=== PATIENT | male | born 1950 | race Caucasian/White ===

== ENCOUNTER 2018-07-19 11:14 | Emergency (ER) | payer MEDICARE, BC ==
[2018-07-19] MEDS ORDERED: ISOVUE-370 76%-LOCM 1 ML ONE (11:20)
--- NOTE | 2018-07-19 12:02 | RAD ---
CHEST TWO VIEWS: HISTORY: Cough with increasing shortness of breath for the last four days. COMPARISON: 11/24/2015 FINDINGS: Two views of the chest show an enlarged cardiomediastinal silhouette with atherosclerotic calcificati ons in the aorta. There is no evidence of consolidation, mass, or pleural effusion. IMPRESSION: Cardiomegaly. POS: [facility]
[2018-07-19 12:08] LABS: #Lymphocytes 0.9 thou/uL (1.20-3.40); #Monocytes 0.6 thou/uL (0.11-0.59); #Neutrophils 3.9 thou/uL (1.40-6.50); %Basophils 0.3 % (0.0-1.0); %Eosinophils 0.9 % (0.0-10.0); %Lymphocytes 16.1 % (21.0-51.0); %Monocytes 10.6 % (0.0-10.0); %Neutrophils 72.1 % (42.0-75.0); Hemoglobin 11.2 g/dL (14.0-18.0); Mean Corpuscular HGB CONC 32.8 g/dL (32.0-36.0); Mean Corpuscular Hemoglobin 31.1 pg (27.0-31.0); Mean Corpuscular Volume 94.8 fL (78.0-98.0); Mean Platelet Volume 8.6 fL (7.4-10.4); Platelet Count 140 thou/uL (130-400); White Blood Cell (WBC) Count 5.5 thou/uL (4.8-10.8)
[2018-07-19 12:24] LABS: Anion Gap 10 mmol/L (10-20); BUN (Urea Nitrogen) 15 mg/dL (8.4-25.7); Calc. Creatinine Clearance 0 mL/min (70-130); Calcium 9.1 mg/dL (7.8-10.44); Carbon Dioxide 22 mmol/L (23-31); Chloride 108 mmol/L (98-107); Estimated GFR-MDRD 72; Glucose 188 mg/dL (80-115); Potassium 4.4 mmol/L (3.5-5.1); Sodium 136 mmol/L (136-145)
[2018-07-19 12:29] LABS: CKMB 1.4 ng/mL (0-6.6); Troponin I Less than 0.010 ng/mL (< 0.028)
[2018-07-19] MEDS ORDERED: Water For Inject, Bacteriostat 0 ML ONE (13:09)
[2018-07-19] MEDS ORDERED: methylPREDNISolone Sod Succ/PF 125 MG/2 ML VIAL ONE (13:09)
[2018-07-19] MEDS ORDERED: Water For Inject, Bacteriostat 30 ML ONE (13:11)
[2018-07-19 13:21] LABS: Bilirubin Negative (Negative); Blood, Urine Negative (Negative); Clarity CLEAR (Clear); Glucose, Urine (Dipstick) Negative (Negative); Leukocyte Negative (Negative); Nitrite Negative (Negative); Protein, Urine (Dipstick) Negative (Neg-Trace); Specific Gravity, Urine 1.014 (1.002-1.036); Urobilinogen 0.2 mg/dL (0.2-1.0); pH, Urine 5.5 (5.0-9.0)
--- NOTE | 2018-07-19 13:26 | CT ---
CT ANGIOGRAM CHEST WITH 3D RENDERING: HISTORY: A 67-year-old male with a history of shortness of breath, cough, and fever last night. FINDINGS: There are bilateral heterogeneous pleural plaques and pleural thickening with some associated pleural calcification. This is a finding that can be seen in patients with asbestosis. There may be some a ctual right pleural effusion, in addition to the pleural thickening. No convincing CT evidence for a cute pulmonary embolism. Three-vessel coronary artery calcific disease. No evidence of aortic aneur ysm or dissection. The visualized upper abdomen appears unremarkable. There is at least one 0.6 cm in diameter subpleural nodule in the left lower lobe, as well as some pleural-based nodularity bilate rally. There are somewhat diffuse ground glass opacity changes bilaterally, particularly in the lowe r lobes, nonspecific. IMPRESSION: 1. No convincing CT evidence for acute pulmonary embolism. 2. Prominent bilateral pleural plaques and nodular pleural thickening with some calcification change s, a finding that can be seen in association with asbestosis, as well as probable small, free right p leural effusion. 3. Probable small liver cysts. 4. Three vessel coronary artery calcific disease. 5. A small, 0.6 cm in diameter subpleural nodule in the left lower lobe. Given other abnormal findings in the chest, short-term followup for pulmonary nodule surveillance is suggested at [address] POS: AMIE
--- NOTE | 2018-07-22 12:18 | EKG ---
Test Reason : Blood Pressure : / mmHG Vent. Rate : 069 BPM Atrial Rate : 069 BPM P-R Int : 300 ms QRS Dur : 102 ms QT Int : 390 ms P-R-T Axes : 046 033 015 degrees QTc Int : 417 ms Sinus rhythm with 1st degree A-V block Inferior infarct , age undetermined Abnormal ECG Confirmed by TOÑO LUICA ([id number]), editorial director PUJA PAGE ([id number]) on 07/22/2018 12:17:37 PM Referred By: Confirmed By:TOÑO LUCIA
== END 2018-07-19 14:42 | disposition home or self-care (01) ==
LOC: ERS 11:14
DX: J44.1 Chronic obstructive pulmonary disease with (acute) exacerbation (principal); I25.2 Old myocardial infarction; E11.9 Type 2 diabetes mellitus without complications; I10 Essential (primary) hypertension; Z87.891 Personal history of nicotine dependence; Z79.4 Long term (current) use of insulin; Z79.899 Other long term (current) drug therapy; Z79.82 Long term (current) use of aspirin
CPT/HCPCS: 71046; 71275; 80048; 81003; 82553; 83880; 84484; 85025; 93005; 94640; 96374; J2930

== ENCOUNTER 2018-10-19 13:03 | Outpatient (CLI) | payer MEDICARE, BC ==
--- NOTE | 2018-10-24 10:11 | PFT ---
PATIENT HISTORY: HEIGHT: 68 IN WEIGHT: 265 SMOKER: NO HOW LON YRS PACKS PER DAY: 1 PRODUCTIVE COUGH: LUNG DISEASE: PHYSICIAN INTERPRETATION FINAL REPORT: There is mild reduction in Expiratory Flows along with moderate reduction in Vital Capacity, with out any improvement following Bronchodilator Therapy. RV was hyperinflated; RV/TLC is hyperexpanded, gas transfer is normal. IMPRESSION: Obstructive ventilatory impairment. Quality Director: NEIDA Business Process Manager: NEIDA SIM
== END 2018-10-19 13:04 | disposition home or self-care (01) ==
LOC: CP 13:03
PROVIDERS: ATTEND Internal Medicine
DX: R06.00 Dyspnea, unspecified (principal); G47.33 Obstructive sleep apnea (adult) (pediatric); R91.1 Solitary pulmonary nodule
CPT/HCPCS: 94060; 94727; 94729

== ENCOUNTER 2019-01-18 09:18 | Outpatient (CLI) | payer MEDICARE, BC ==
--- NOTE | 2019-01-18 10:49 | CT ---
CT CHEST WITHOUT CONTRAST: DATE: 01/18/2019. PROVIDED CLINICAL HISTORY: Pulmonary nodule. FINDINGS: Comparison is made with the CT examination noted 07/19/2018. Vascular calcification including coronary calcium is dmeonstrated. The heart, pericardium, and great vessels are suboptimally evaluated in the absence of IV contrast material but demonstrate an otherwi se unremarkable unenhanced CT appearance. There is no evidence for thoracic lymph node enlargement with limitations due to lack of IV contrast. Stable noncalcified 6 mm left lower lobe pulmonary nodule. No additional pulmonary nodules are seen. Prominent bilateral partially calcified pleural plaques are again demonstrated, appearing similar t o the prior study. No evidence for pleural fluid on the current examination. No evidence for pneumo thorax. The visualized portions of the upper abdomen demonstrate an unremarkable CT appearance. The osseous structures demonstrate no concerning osteoblastic or osteolytic lesions. IMPRESSION: 1. Stable noncalcified left lower lobe pulmonary nodule. 2. 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 POS: [facility]
== END 2019-01-18 09:19 | disposition home or self-care (01) ==
LOC: BICCT 09:18
PROVIDERS: ATTEND Internal Medicine
DX: J44.9 Chronic obstructive pulmonary disease, unspecified (principal); R91.1 Solitary pulmonary nodule; J92.9 Pleural plaque without asbestos
CPT/HCPCS: 71250

== ENCOUNTER 2019-07-03 12:37 | Outpatient (CLI) | payer MEDICARE, BC ==
--- NOTE | 2019-07-03 13:32 | CT ---
CT chest noncontrast HISTORY: Lung nodule. Follow-up. COMPARISON: 01/18/2019 and 07/19/2018. FINDINGS: The noncalcified 6 mm subpleural nodule at the lateral aspect of the left lower lobe is unc hanged in size and appearance. No new parenchymal nodules. Widespread lobular areas of partially calcified pleural plaque are stable. No pleural fluid or pneumothorax. Lack of contrast limits evaluation of the soft tissues. No bulky mediastinal adenopathy. Calcificatio n in the arterial structures. Degenerative changes lumbar spine. IMPRESSION: Stable noncalcified 6 mm left lower lobe subpleural nodule. Extensive pleural plaque, partially calcified. Stable. Atherosclerosis.
== END 2019-07-03 12:38 | disposition home or self-care (01) ==
LOC: BICCT 12:37
PROVIDERS: ATTEND Internal Medicine
DX: R91.1 Solitary pulmonary nodule (principal); I70.90 Unspecified atherosclerosis; J92.9 Pleural plaque without asbestos
CPT/HCPCS: 71250

== ENCOUNTER 2019-09-13 13:45 | Outpatient (CLI) | payer MEDICARE, BC ==
--- NOTE | 2019-09-13 14:32 | ULT ---
ULTRASOUND RENAL BILATERAL STANDARD: Date: 09/13/19 HISTORY: Hematuria. COMPARISON: CT abdomen and pelvis dated 08/03/18. FINDINGS: Real-time Alicia scale and color evaluation of the kidneys and urinary bladder performed. The right kidney measures 11.6 x 5.9 x 6.4 cm. The left kidney measures 12.6 x 6.8 x 6.1 cm. No renal mass, hydronephrosis, or abnormal calcifications. Urinary bladder is unremarkable. IMPRESSION: No evidence for obstructive uropathy. Unremarkable exam. POS: CET
== END 2019-09-13 13:46 | disposition home or self-care (01) ==
LOC: BICULT 13:45
PROVIDERS: ATTEND Family Medicine
DX: R31.21 Asymptomatic microscopic hematuria (principal)
CPT/HCPCS: 76770

== ENCOUNTER 2020-02-26 10:02 | Outpatient (CLI) | payer MEDICARE, BC ==
[~2020-02-26 10:02] MED LIST: Iopamidol-370 76% 500 ML 1 ML ONE
--- NOTE | 2020-02-26 13:46 | CT ---
CT OF THE THORAX WITHOUT IV CONTRAST: 02/26/20 INDICATION: Follow-up pulmonary nodules. COMPARISON: CT of the thorax without contrast dated 07/03/19 and 01/18/19. CTA evaluation from 06/29/18 was also evaluated. FINDINGS: 6 mm anterolateral left lower lobe pulmonary nodule, seen in a subpleural location, measuring 6 mm, o n image 71 of series 3, is stable appearing. Bilateral calcified pleural plaques are similar appearing. Small sub 4 mm pulmonary nodule within the right upper lobe on image 44 of series 3, stable appearing . Coronary artery and thoracic aortic calcifications are similar appearing. There fatty infiltration of the liver. Spleen is enlarged measuring 14.3 cm. No acute osseous abnormality is demonstrated. IMPRESSION: 1. Stable 6 mm left lower lobe pulmonary nodule. Follow-up evaluation in June of 2020 would d emonstrate two years worth of stability. 2. Stable calcified pleural plaques. 3. Hepatomegaly with fatty infiltration and splenomegaly. POS: BH
== END 2020-02-26 10:03 | disposition home or self-care (01) ==
LOC: BICCT 10:02
PROVIDERS: ATTEND Internal Medicine Critical Care Medicine
DX: R91.1 Solitary pulmonary nodule (principal); J92.9 Pleural plaque without asbestos; R16.2 Hepatomegaly with splenomegaly, not elsewhere classified; K76.0 Fatty (change of) liver, not elsewhere classified
CPT/HCPCS: 71260; 82565; Q9967

== ENCOUNTER 2020-12-29 11:05 | Emergency (ER) | payer MEDICARE ==
[2020-12-29 11:47] LABS: #Eosinphils 0.2 thou/uL (0.0-0.7); #Lymphocytes 1.1 thou/uL (1.20-3.40); #Monocytes 0.6 thou/uL (0.11-0.59); #Neutrophils 4.4 thou/uL (1.40-6.50); %Basophils 0.3 % (0.0-1.0); %Eosinophils 3.3 % (0.0-10.0); %Lymphocytes 17.9 % (21.0-51.0); %Monocytes 9.6 % (0.0-10.0); Mean Corpuscular HGB CONC 31.4 g/dL (32.0-36.0); Mean Corpuscular Hemoglobin 29.8 pg (27.0-31.0); Mean Corpuscular Volume 94.9 fL (78.0-98.0); Mean Platelet Volume 8.2 fL (7.4-10.4); Platelet Count 142 thou/uL (130-400); RBC Distribution Width 12.5 % (11.5-14.5); Red Blood Cell (RBC) Count 4.69 mill/uL (4.70-6.10); White Blood Cell (WBC) Count 6.4 thou/uL (4.8-10.8)
[2020-12-29 11:47] LABS: Actual Bicarbonate (HCO3v) 24 mEq/L (22-28); Analyzer IN Cardio ER; Base Excess -0.8 mEq/L (-2.0 to +3.0); Calcium, Ionized (venous) 1.15 mmol/L (1.16-1.32); Chloride (VBG) 108 mmol/L (98-106); Hemoglobin (Hb) 14.9 g/dL (12.6-17.4); Potassium (VBG) 4.19 mmol/L (3.70-5.30)
[2020-12-29 12:09] LABS: ALT (SGPT) 28 U/L (8-55); AST (SGOT) 13 U/L (5-34); Alkaline Phosphatase 78 U/L (40-110); Anion Gap 15 mmol/L (10-20); BUN (Urea Nitrogen) 14 mg/dL (8.4-25.7); Bilirubin, Total 0.4 mg/dL (0.2-1.2); Calc. Creatinine Clearance 0 mL/min (70-130); Calcium 9.2 mg/dL (7.8-10.44); Carbon Dioxide 21 mmol/L (23-31); Chloride 107 mmol/L (98-107); Globulin 2.9 g/dL (2.4-3.5); Glucose 118 mg/dL (80-115); Potassium 4.1 mmol/L (3.5-5.1); Protein, Total 6.9 g/dL (5.8-8.1); Sodium 139 mmol/L (136-145)
[2020-12-29] MEDS ORDERED: Ibuprofen 100 MG/5 ML UDCUP ONE (12:16)
== END 2020-12-29 15:17 | disposition home or self-care (01) ==
LOC: ERS 11:05
DX: R06.02 Shortness of breath (principal); I25.2 Old myocardial infarction; E11.9 Type 2 diabetes mellitus without complications; I10 Essential (primary) hypertension; Z87.891 Personal history of nicotine dependence; E78.00 Pure hypercholesterolemia, unspecified; Z79.82 Long term (current) use of aspirin; Z79.4 Long term (current) use of insulin
CPT/HCPCS: 71045; 80053; 82805; 83880; 84484; 85025; 93005

== ENCOUNTER 2021-06-08 09:48 | Outpatient (CLI) | payer MEDICARE | END 2021-06-08 09:49 | disposition home or self-care (01) | LOC: BICRAD 09:48 | PROVIDERS: ATTEND Internal Medicine Critical Care Medicine | DX: R06.00 Dyspnea, unspecified (principal); I50.9 Heart failure, unspecified; R91.1 Solitary pulmonary nodule | CPT/HCPCS: 71046 ==

== ENCOUNTER 2021-07-06 13:37 | Outpatient (CLI) | payer MEDICARE | END 2021-07-06 13:38 | disposition home or self-care (01) | LOC: BICRAD 13:37 | PROVIDERS: ATTEND Internal Medicine Critical Care Medicine | DX: R06.00 Dyspnea, unspecified (principal); J90 Pleural effusion, not elsewhere classified | CPT/HCPCS: 71046 ==

== ENCOUNTER 2021-07-13 14:12 | Outpatient (CLI) | payer MEDICARE ==
[~2021-07-13 14:12] MED LIST changes: +Iopamidol 370 76% 100 ML VIAL ONE; -Iopamidol-370 76% 500 ML 1 ML ONE
[2021-07-13 14:50] LABS: Estimated GFR-MDRD - POC Greater than 90
== END 2021-07-13 14:13 | disposition home or self-care (01) ==
LOC: BICCT 14:12
PROVIDERS: ATTEND Internal Medicine Critical Care Medicine
DX: R91.8 Other nonspecific abnormal finding of lung field (principal); J90 Pleural effusion, not elsewhere classified; I25.10 Atherosclerotic heart disease of native coronary artery without angina pectoris
CPT/HCPCS: 71260; 82565; Q9967

== ENCOUNTER 2021-08-11 09:20 | Outpatient (CLI) | payer MEDICARE ==
[2021-08-11 18:11] LABS: SARS-CoV-2 PCR by NAA Not Detected (NotDetected)
== END 2021-08-11 09:21 | disposition home or self-care (01) ==
LOC: LABBT 09:20
PROVIDERS: ATTEND Internal Medicine Critical Care Medicine
DX: Z01.812 Encounter for preprocedural laboratory examination (principal); Z20.822 Contact with and (suspected) exposure to COVID-19
CPT/HCPCS: U0003; U0005

== ENCOUNTER → 2021-08-14 | Day surgery (SDC) | payer MEDICARE ==
[2021-08-14 15:08] LABS: Fluid, Triglycerides 47 mg/dL (Not Available); Pleural Fluid, Amylase 38 U/L (Not Available); Pleural Fluid, Glucose Less than 20 mg/dL; Pleural Fluid, LDH 3443 U/L (Not Available); Pleural Fluid, Protein 5.2 g/dL
[2021-08-14 16:53] LABS: RBC Count-Automated (BF) 3059 /cu.mm; WBC/Nucleated-Auto (BF) 863 /cu.mm
[2021-08-14 18:03] LABS: Body Fluid Source Thoracentesis Fluid
[2021-08-14 18:04] LABS: BF Color Yellow; Clarity Cloudy/Turbid (Clear); Tube # 2
[2021-08-14 18:06] LABS: BF Segmented Neutrophils 65 %; Cell Count Non Hematic 32 %; Lymphocytes 3 %
[2021-08-15 12:37] LABS: Ref Lab Test Ordered RF PLEURAL FLUID; Reference Lab Name LABCORP
== END ==
LOC: SDC 12:01
PROVIDERS: ATTEND Internal Medicine Critical Care Medicine
PROC: 0BJQ3ZZ Inspection of Pleura, Percutaneous Approach (ICD-10-PCS; principal; 2021-08-14)
DX: J90 Pleural effusion, not elsewhere classified (principal); Z87.891 Personal history of nicotine dependence
CPT/HCPCS: 32554; 82150; 82465; 82945; 83615; 83986; 84157; 84478; 85060; 87070; 87116; 87205; 87206; 88112; 88305; 89051; J1642

== ENCOUNTER 2021-09-11 09:11 | Outpatient (CLI) | payer MEDICARE | END 2021-09-11 09:12 | disposition home or self-care (01) | LOC: RAD 09:11 | PROVIDERS: ATTEND Internal Medicine Critical Care Medicine | DX: R06.00 Dyspnea, unspecified (principal); J90 Pleural effusion, not elsewhere classified | CPT/HCPCS: 71046 ==

== ENCOUNTER 2021-12-10 12:05 | Outpatient (CLI) | payer BC, OTHER | END 2021-12-10 12:06 | disposition home or self-care (01) | LOC: RAD 12:05 | PROVIDERS: ATTEND Internal Medicine Critical Care Medicine | DX: R91.1 Solitary pulmonary nodule (principal); J90 Pleural effusion, not elsewhere classified | CPT/HCPCS: 71046 ==

== ENCOUNTER 2022-06-08 09:57 | Outpatient (CLI) | payer OTHER | END 2022-06-08 09:58 | disposition home or self-care (01) | LOC: RAD 09:57 | PROVIDERS: ATTEND Internal Medicine Critical Care Medicine | DX: J90 Pleural effusion, not elsewhere classified (principal); R91.1 Solitary pulmonary nodule | CPT/HCPCS: 71046 ==

== ENCOUNTER 2022-12-17 09:20 | Outpatient (CLI) | payer MEDICARE | END 2022-12-17 09:21 | disposition home or self-care (01) | LOC: RAD 09:20 | PROVIDERS: ATTEND Internal Medicine Critical Care Medicine | DX: R06.00 Dyspnea, unspecified (principal); J90 Pleural effusion, not elsewhere classified | CPT/HCPCS: 71046 ==

== ENCOUNTER 2023-06-09 09:33 | Outpatient (CLI) | payer MEDICARE | END 2023-06-09 09:34 | disposition home or self-care (01) | LOC: RAD 09:33 | PROVIDERS: ATTEND Internal Medicine Critical Care Medicine | DX: R06.00 Dyspnea, unspecified (principal); J90 Pleural effusion, not elsewhere classified | CPT/HCPCS: 71046 ==

== ENCOUNTER 2024-08-02 08:42 | Outpatient (CLI) | payer MEDICARE | END 2024-08-02 08:43 | disposition home or self-care (01) | LOC: RAD 08:42 | PROVIDERS: ATTEND Internal Medicine Critical Care Medicine | DX: R06.00 Dyspnea, unspecified (principal); J94.8 Other specified pleural conditions | CPT/HCPCS: 71046 ==